=== PATIENT | female | born 1960 | race Caucasian/White ===

== ENCOUNTER 2017-06-14 08:46 | Emergency (ER) | payer OTHER ==
[~2017-06-14] VITALS: Ht 162.6 cm; Wt 82.8 kg
[2017-06-14 09:02] VITALS: BP 149/101
[2017-06-14] MEDS ORDERED: BUSPAR5 MG PO (09:31)
[2017-06-14] MEDS ORDERED: MOTRIN600 MG PO (10:21)
== END 2017-06-14 10:36 | disposition home or self-care (01) ==
LOC: EME 08:46
DX: S60.222A Contusion of left hand, initial encounter (principal); I10 Essential (primary) hypertension; F17.200 Nicotine dependence, unspecified, uncomplicated; F32.9 Major depressive disorder, single episode, unspecified; W19.XXXA Unspecified fall, initial encounter
CPT/HCPCS: 73130; 99281; 99284